=== PATIENT | female | born 1980 | race Caucasian/White ===

== ENCOUNTER 2023-07-06 19:00 | Emergency (ER) | payer OTHER, SELFPAY ==
[2023-07-06 19:19] VITALS: BP 113/82; PULSE 96; RESP 16; TEMP 36.6; O2SAT 99
--- NOTE | 2023-07-06 19:49 | ED.URI ---
HPI - URI/Sore Throat General Chief Complaint: Upper Respiratory Infection Stated Complaint: SINUS PRESSURE/HEADACHE Source: patient, RN notes reviewed and old records reviewed Mode of arrival: ambulatory Limitations: no limitations History of Present Illness HPI Narrative: 42 year old female who presents to [facility] care with complaints of sinus congestion, sinus pressure and continuous sinus headache. Initially symptoms started last week and then headache pain increased since Tuesday. Patient reports history of sinus problems and sinus infections. Patient reports that she has been taking Tylenol and Ibuprofen for her headache pain around the clock has been taking Singulair and also Zyrtec D for symptoms without relief. Patient reports history of sinus infections and seasonal allergies states dry cough started today. MD elicited complaint: cough, rhinorrhea, nasal congestion, sinus pain and other (headache) Pertinent past history: sinusitis and seasonal allergies Onset (ago): day(s) (6) Consistency: constant Severity: moderate Pain scale (0-10): 5 Description of mucous: yellow Able to tolerate fluids by mouth: Yes Treatments prior to arrival: acetaminophen, ibuprofen and other (Zyrtec D, singulair) Related Data Home Medications Medication Instructions Recorded Confirmed cetirizine 5 mg-pseudoephedrine ER 1 tablet PO Q12H 07/06/23 07/06/23 120 mg tablet,extended release,12hr (Zyrtec-D) etonogestrel 0.12 mg-ethinyl See Rx Instructions .Route .COMPLEX 07/06/23 07/06/23 estradiol 0.015 mg/24 hr vaginal ring Allergies Allergy/AdvReac Type Severity Reaction Status Date / Time No Known Allergies Allergy Verified 07/06/23 19:16 Review of Systems Review of Systems: CONSTITUTIONAL: Reports malaise, no chills, sweats, or fever. EYES: Denies visual changes, redness, or discharge. ENT: Reports rhinorrhea, congestion, sinus pain, no otalgia and no sore throat. CARDIOVASCULAR: Denies chest pain, palpitations, or edema. RESPIRATORY: Reports cough.? Denies dyspnea. GASTROINTESTINAL: Denies abdominal pain, nausea, vomiting, diarrhea SKIN: Denies rash or itching. MUSCULOSKELETAL: Denies myalgia. NEUROLOGIC: Reports headache. All systems reviewed & are unremarkable except as noted in HPI and below PMFSH Past Medical History Medical History (Updated 07/06/23 @ 20:04 by Reyna Garnica NP) Seasonal allergies Sinusitis Social History Social History (Updated 07/06/23 @ 20:04 by Reyna Garnica NP) Smoking status: Never smoker Alcohol intake: current Alcohol use details: rare Substance use type: does not use Living arrangements: with family Gender identity (if verbalized by the patient): Female Comments At time of signature, agree with nursing past medical, surgical, social and family history. There is no relevant family history pertinent to the presenting complaint Exam Narrative: GENERAL: Well-appearing, well-nourished, and in no acute distress. HEAD: Normocephalic EYES: PERRLA, conjunctivae clear ENT: Nares clear, turbinates edematous and erythematous, clear to yellow tinged discharge.sinus pressure and headache. Mucous membranes moist. TM pearly lucas with dull light reflex bilaterally; no tragal tenderness. Oropharynx erythematous without lesions. Tonsils not enlarged and without exudate, no drooling, no hoarseness, no trismus, uvula midline.post nasal drainage NECK: Supple. No lymphadenopathy CHEST: Clear to auscultation, breath sounds equal. No wheezing, rhonchi, rales, or stridor. No respiratory distress, speaks in full sentences.dry cough noted HEART: Regular rate and rhythm. No murmur heard. SKIN: Warm, dry, no rash. NEURO: Alert and oriented x3. PSYCH: Normal mood and affect Course Course Emergency Course: Patient is aware of diagnosis, understands and agrees to treatment plan.? Anticipatory guidance given.? Patient agrees to follow-up as direc
== END 2023-07-06 20:00 | disposition home or self-care (01) ==
PROVIDERS: Emergency Provider Registered Nurse; PCP Family Medicine
DX: J01.40 Acute pansinusitis, unspecified (principal)
CPT/HCPCS: 99213; G0463